=== PATIENT | male | born 1940 | race Caucasian/White ===

== ENCOUNTER 2016-11-25 07:02 | Day surgery (SDC) | payer MEDICARE ==
[2016-11-16 10:32] LABS: BASOPHILS 0.3 %; BASOPHILS ABSOLUTE 0.02 10/3/uL (0.0-0.16); EOSINOPHILS ABSOLUTE 0.12 10/3/uL (0.0-0.53); HEMATOCRIT 40.6 % (40.0-51.0); HEMOGLOBIN 14.1 g/dL (13.6-17.8); IMMATURE GRANULOCYTES 0.2 %; IMMATURE GRANULOCYTES ABSOLUTE 0.01 10/3/uL (0.0-0.11); LYMPHOCYTES 23.6 %; LYMPHOCYTES ABSOLUTE 1.39 10/3/uL (0.67-4.30); MEAN CORPUS HGB CONC 34.7 g/dL (32.0-36.0); MEAN CORPUSCULAR HEMOGLOB 31.5 pg (26.0-34.0); MEAN CORPUSCULAR VOLUME 90.6 fL (80-100); MEAN PLATELET VOLUME 9.3 fL (9.2-13.0); MONOCYTES 7.8 %; MONOCYTES ABSOLUTE 0.46 10/3/uL (0.21-1.20); NEUTROPHILS 66.1 %; PLATELET COUNT 203 10/3/uL (150-400); RBC DISTRIBUTION WIDTH 13.5 % (12.0-16.0); RED CELL COUNT 4.48 10/6/uL (4.7-6.1); WHITE BLOOD CELLS 5.9 10/3/uL (4.5-10.5)
[2016-11-16 10:34] LABS: MANUAL DIFF NO %
[2016-11-16 10:37] LABS: PARTIAL THROMBO TIME 25.2 SEC (22.5-37.2); PROTIME (NOT ORD) 12.7 SEC (12.0-14.5)
[2016-11-16 10:50] LABS: CALCIUM, SERUM 8.7 MG/DL (8.5-10.4); CHLORIDE, SERUM 100 MMOL/L (96-112); CO2 (CARBON DIOXIDE) 29 MMOL/L (24-34); CREATININE 1.28 MG/DL (0.70-1.30); GFR AFRICAN AMERICAN 63 ML/MIN (>=60); GFR NON AFRICAN AMERICAN 54 ML/MIN (>=60); GLUCOSE, SERUM 89 MG/DL (60-99); POTASSIUM, SERUM 3.8 MMOL/L (3.5-5.3); SODIUM, SERUM 137 MMOL/L (135-148)
[2016-11-16 10:51] LABS: BUN (BLOOD UREA NITROGEN) 11 MG/DL (6-23)
[2016-11-16 11:08] LABS: ASCORBIC ACID (UR NOT ORDER) NEG (NEG); BILIRUBIN, URINE NEGATIVE (NEG); KETONE, URINE NEGATIVE (NEG); LEUKOCYTE ESTERASE(NOT OR SMALL (NEG); WBC (NOT ORDERED) (RFLEX) 3 (0-5)
--- NOTE | ~2016-11-25 | OP ---
Record Of Operation [facility] [address] [place]. [address] NAME: WARREN PUGH : 38 STATUS : REG [facility] [place] PAT#: [id number] AGE: 76 ADM/REG DATE : 11/25/16 MR#: [id number] REPORT SERV DATE: 11/25/16 DICTATED BY: ZOLTAN DUBOIS DATE: 11/25/16 REPORT STATUS : Draft TRANSCRIBED BY: MODL DATE: 11/25/16 DATE OF PROCEDURE: 11/25/2016 PREOPERATIVE DIAGNOSIS: Benign prostatic hypertrophy with obstruction. POSTOPERATIVE DIAGNOSIS: Benign prostatic hypertrophy with obstruction. PROCEDURE: Cystoscopy, GreenLight photo laser vaporization of prostate. SURGEON: Zoltan Dubois M.D. ANESTHESIA: General. ESTIMATED BLOOD LOSS: Less than 25 mL. FLUID REPLACEMENT: 200 mL crystalloid. DRAINS: 20-Niuean Dubois catheter, 12 mL sterile water inflated in the balloon. INDICATION: A 76-year-old male with symptomatic BPH on two medications. TECHNIQUE: The patient was identified, brought to the operating room, administered general anesthetic agent by the Anesthesia Service, and maintained with laryngeal mask airway. He was positioned in the dorsal lithotomy position. The penis, groin, scrotum, perineum were prepped and draped in the usual sterile fashion. A 22-Niuean cystoscopic sheath with 30- degree lens was used for cystourethroscopy. The anterior bulbus urethra normal. The prostatic urethra was hypertrophied with lateral lobe and median lobe hypertrophy. The bladder was entered and surveyed. There was some erythema as well as there is some cystitis. There were no papillary tumors. There were no stones. The ureteral orifices were identified and were normal in location and configuration. The cystoscope was removed. I sounded the urethra with 20-Niuean Orion sounds and inserted a 24-Niuean continuous flow laser sheath. This was placed with an obturator. The obturator was removed and a 30- degree lens and laser bridge was inserted. I then inserted a GreenLight XPS fiber started at 100 ortiz power cut a groove from the bladder neck back to the verumontanum at the 7 o'clock and the 5 o'clock position. I then increased the wattage up to 160 ortiz and vaporized the lateral lobe tissue in the floor of the prostate. I turned the wattage back down to 100 ortiz and I vaporized anteriorly and a little bit of sculpting around the verumontanum. No vaporization occurred distal to the verumontanum. The bladder was then irrigated free of all debris with Ellik evacuators. I removed the scope and placed a 20- Niuean Dubois catheter. 12 mL of sterile water were inflated in catheter balloon. I irrigated the bladder clear. The patient was then awakened and taken to the recovery unit in stable and satisfactory condition. PF/MODL Record Of [address] [place]. [address] NAME: WARREN PUGH : 38 STATUS : REG [facility] [place] PAT#: [id number] AGE: 76 ADM/REG DATE : 11/25/16 MR#: [id number] REPORT SERV DATE: 11/25/16 DICTATED BY: ZOLTAN DUBOIS DATE: 11/25/16 REPORT STATUS : Draft TRANSCRIBED BY: MODArleen DATE: 11/25/16 Zoltan Dubois M.D. / [id number] CC: Prince Jones Crystal
[~2016-11-25 07:02] MED LIST: ASAB PO; ATEN50 PO; CELEXA10 PO; FLOMAX4 PO; LOFIB160 PO; PROSCAR5 PO; TOPAMAX200 MG PO; VITAMIN D31000 UNIT PO; ZESTORETIC1 TA1 PO
== END 2016-11-25 14:29 | disposition home or self-care (01) ==
LOC: SDC 07:02
PROVIDERS: Urology
PROC: 0V508ZZ Destruction of Prostate, Via Natural or Artificial Opening Endoscopic (ICD-10-PCS; principal; 2016-11-25 09:00)
DX: N40.1 Benign prostatic hyperplasia with lower urinary tract symptoms (principal); N13.8 Other obstructive and reflux uropathy; G43.909 Migraine, unspecified, not intractable, without status migrainosus; I10 Essential (primary) hypertension; F41.9 Anxiety disorder, unspecified; M19.90 Unspecified osteoarthritis, unspecified site; H91.90 Unspecified hearing loss, unspecified ear; Z79.82 Long term (current) use of aspirin; Z97.4 Presence of external hearing-aid; Z98.890 Other specified postprocedural states; Z79.899 Other long term (current) drug therapy
CPT/HCPCS: 80048; 81001; 85025; 85610; 85730; 87086; 93005; J2250; J2710; J3010